=== PATIENT | male | born 1965 | race American Indian/Alaskan Native ===

== ENCOUNTER 2017-04-26 07:25 | Inpatient (IN) | payer OTHER ==
[2017-04-26 07:33] VITALS: BMI 28.5
--- NOTE | 2017-04-26 08:17 | ED PDOC ---
Lower Extremity Pain/Injury Time Seen by Provider: 04/26/17 07:25 Chief Complaint (Nursing): Lower Extremity Problem/Injury Chief Complaint (Provider): Left knee pain History Per: Patient History/Exam Limitations: no limitations Onset/Duration Of Symptoms: Days Current Symptoms Are (Timing): Still Present Additional Complaint(s): 52yo male with no past medical history, presents to ED for evaluation of left knee pain after he injured it yesterday. Patient states he had a meniscus injury one month ago, resulting in a torn meniscus. Patient states he is unable to fully extend at his left knee. States he took Aleve at 7pm last night with mild relief. He denies any numbness or tingling of his lower extremities. Patient has no other medical complaints. - Knee Currently Unable To: Bear Weight, Straighten Past Medical History Reviewed: Historical Data, Nursing Documentation, Vital Signs Vital Signs: Last Vital Signs Temp 97.2 F L 04/26/17 08:07 Pulse 87 04/26/17 08:07 Resp 16 04/26/17 08:07 BP 117/75 04/26/17 08:07 Pulse Ox 96 04/26/17 08:07 - Medical History PMH: Asthma - Surgical History Surgical History: Hernia Repair - Family History Family History: States: No Known Family Hx - Social History Current smoker - smoking cessation education provided: No Ex-Smoker (has not smoked in the last 12 months): No Alcohol: None Drugs: Denies - Home Medications Home Medications: Ambulatory Orders Medication Instructions Recorded oxyCODONE/Acetaminophen [Percocet 1 ea PO Q4H PRN #20 tab 04/26/17 5/325 mg Tab] - Allergies Allergies/Adverse Reactions: Allergies Allergy/AdvReac Type Severity Reaction Status Date / Time peanut Allergy ITCHING Verified 04/26/17 08:55 Review of Systems ROS Statement: Except As Marked, All Systems Reviewed And Found Negative Constitutional: Negative for: Fever, Chills Cardiovascular: Negative for: Chest Pain Respiratory: Negative for: Shortness of Breath Musculoskeletal: Positive for: Leg Pain (left knee pain) Physical Exam - Reviewed Nursing Documentation Reviewed: Yes Vital Signs Reviewed: Yes - Physical Exam Appears: Positive for: Non-toxic, No Acute Distress Head Exam: Positive for: ATRAUMATIC, NORMAL INSPECTION, NORMOCEPHALIC Skin: Positive for: Normal Color Eye Exam: Positive for: Normal appearance Neck: Positive for: Normal, Painless ROM Cardiovascular/Chest: Positive for: Regular Rate, Rhythm. Negative for: Murmur Respiratory: Positive for: Normal Breath Sounds. Negative for: Respiratory Distress Gastrointestinal/Abdominal: Positive for: Normal Exam Extremity: Positive for: Tenderness (tenderness to palpation left knee). Negative for: Normal ROM ((+) decreased ROM at left knee due to pain), Deformity Neurologic/Psych: Positive for: Alert, Oriented. Negative for: Motor/Sensory Deficits - Laboratory Results Result Diagrams: 04/26/17 08:46 04/26/17 08:46 - ECG O2 Sat by Pulse Oximetry: 96 (RA) Pulse Ox Interpretation: Normal Medical Decision Making Medical Decision Making: Time: 809 Impression: Left knee injury Plan: -- Labs -- EKG Reassess Time: [address] Boucher pt to be admitted for further evaluation and workup pt agreeable to plan Scribe Attestation: Documented by Dara Jimenez acting as a scribe for Dolores Ordaz MD. Provider Attestation: All medical record entries made by the Scribe were at my direction and personally dictated by me. I have reviewed the chart and agree that the record accurately reflects my personal performance of the history, physical exam, medical decision making, and the department course for this patient. I have also personally directed, reviewed, and agree with the discharge instructions and disposition. Disposition - Clinical Impression Clinical Impression: Locking of left knee - Patient ED Disposition Is Patient to be Admitted: Yes - Disposition Disposition Time: 07:55 Condition: STABLE
--- NOTE | 2017-04-26 08:53 | CP.PCM.HP ---
History of Present Illness - History of Present Illness History of Present Illness: Orthopedic consultation DR. Boucher 52M complains of severe left knee pain and locked knee. He says he injured his left knee on the treadmill approx 1 1/2 months ago, but has been able to walk until last night when pain got worse. PSH: hernia PMH: denies NKDA Present on Admission - Present on Admission Any Indicators Present on Admission: No Past Patient History - Past Medical History & Family History Past Medical History?: Yes Past Family History: Reviewed and not pertinent - Past Social History Alcohol: None Drugs: Denies - PULMONARY Hx Asthma: Yes - INTEGUMENTARY Hx Eczema: Yes - PSYCHIATRIC Hx Substance Use: No - SURGICAL HISTORY Hx Surgeries: Yes Hx Herniorrhaphy: Yes - ANESTHESIA Hx Anesthesia: Yes Hx Anesthesia Reactions: No Meds Allergies/Adverse Reactions: Allergies Allergy/AdvReac Type Severity Reaction Status Date / Time No Known Allergies Allergy Verified 04/26/17 08:06 Physical Exam - Constitutional Appears: Well - Expanded Lower Extremities Exam Left Knee exam: tenderness (limited left knee ROM, c/o pain. Sensation intact, +DP/ PT pulses, calves soft NT neg homans TTP to medial joint line, small joint effusion, no erythema, skin in tact) Neuro vacular tendon exam: no vascular compromise - Neurological Exam Neurological exam: Alert, Oriented x3 - Psychiatric Exam Psychiatric exam: Normal Affect, Normal Mood - Skin Skin Exam: Dry, Intact, Normal Color, Warm Results - Vital Signs Recent Vital Signs: Last Vital Signs Temp 97.2 F L 04/26/17 08:07 Pulse 87 04/26/17 08:37 Resp 16 04/26/17 08:07 BP 117/75 04/26/17 08:07 Pulse Ox 96 04/26/17 08:39 Assessment & Plan (1) Locking of left knee Assessment and Plan: case d/w Dr. Boucher NPO for left knee arthroscopy today f/u labs for OR Status: Acute
[2017-04-26 08:54] LABS: BASO % 0.6 % (0.0-2.0); EOS # 0.5 K/uL (0.0-0.7); EOS % 6.3 % (0.0-4.0); HEMATOCRIT 47.1 % (35.0-51.0); LYMPH # 2.9 K/uL (1.0-4.3); LYMPH % 39.3 % (20.0-40.0); MEAN CELL VOLUME 80.6 fl (80.0-94.0); MEAN CORPUSCULAR HGB CONC 33.6 g/dL (33.0-37.0); MEAN PLATELET VOLUME 7.3 fl (7.2-11.7); MONO # 0.7 K/uL (0.0-0.8); MONO % 9.3 % (0.0-10.0); NEUT # 3.2 K/uL (1.8-7.0); NEUT % 44.5 % (50.0-75.0); NRBC % 0.1 % (0.0-0.0); RED CELL DISTRIBUTION WIDTH 14.5 % (11.5-14.5); WHITE BLOOD COUNT 7.3 K/uL (4.8-10.8)
[2017-04-26 09:01] LABS: ALB/GLOB RATIO 1.3 (1.0-2.1); ALKALINE PHOSPHATASE 77 U/L (38-126); ALT/SGPT 53 U/L (21-72); AST/SGOT 34 U/L (17-59); BILIRUBIN,TOTAL 0.5 mg/dl (0.2-1.3); BLOOD UREA NITROGEN 19 mg/dl (9-20); CALCIUM 9.5 mg/dL (8.4-10.2); CARBON DIOXIDE 26 mmol/L (22-30); CHLORIDE 105 mmol/L (98-107); GFR AFRICAN-AMERICAN > 60; GLUCOSE,RANDOM 104 mg/dL (75-110); POTASSIUM 4.3 MMOL/L (3.6-5.0); SODIUM 142 mmol/l (132-148); TOTAL PROTEIN 8.2 G/DL (6.3-8.2)
[2017-04-26] MEDS ORDERED: Propofol 10 mg/ml Inj (20 ML) ONE (09:18)
[2017-04-26] MEDS ORDERED: Lidocaine 2% MPF (5 ml) Inj ONE (09:19)
[2017-04-26] MEDS ORDERED: Rocuronium 10 mg/ml (5 ml) ONE (09:19)
[2017-04-26] MEDS ORDERED: Lidocaine 4% (Laryng-O-Jet) Kit MM ONE (09:19)
[2017-04-26] MEDS ORDERED: MethylPREDNISolone Depo 40 mg/ml Inj ONE (09:19)
[2017-04-26] MEDS ORDERED: Succinylcholine 200 mg/10 ml Inj IV ONE (09:19)
[2017-04-26] MEDS ORDERED: Dexamethasone 4 mg/1 ml ONE ×2 (09:19→10:59)
[2017-04-26] MEDS ORDERED: Lidocaine 2% w Epi 1:100,000 Inj IJ ONE (09:19)
[2017-04-26] MEDS ORDERED: Lidocaine 1% Inj (20ml) ONE (09:19)
[2017-04-26] MEDS ORDERED: ceFAZolin IV 1 gm in Dextrose 2 GM/100 ML BAG IVPB ONE (09:19)
[2017-04-26] MEDS ORDERED: Phenylephrine 10 mg/ml Inj ONE (09:19)
[2017-04-26] MEDS ORDERED: Bupivacaine 0.5% Inj(30mL) ONE (09:19)
--- NOTE | 2017-04-26 10:18 | RAD ---
HISTORY: knee pain COMPARISON: None available. TECHNIQUE: Chest, one view. FINDINGS: LUNGS: No focal consolidation. Please note that chest x-ray has limited sensitivity for the detection of pulmonary masses. PLEURA: No significant pleural effusion identified. No definite pneumothorax . CARDIOVASCULAR: The cardiomediastinal silhouette appears within normal limits of size. OSSEOUS STRUCTURES: No acute osseous abnormality identified. VISUALIZED UPPER ABDOMEN: Unremarkable. OTHER FINDINGS: None. IMPRESSION: No focal consolidation, significant pleural effusion, or definite pneumothorax identified.
[2017-04-26] MEDS ORDERED: Midazolam 2 MG/2 ML VIAL ONE (10:47)
[2017-04-26] MEDS ORDERED: Lactated Ringer's 1,000 ML IV ONE (11:43)
[2017-04-26] MEDS ORDERED: Lidocaine 1% Inj (20ml) IJ ONE (11:43)
[2017-04-26] MEDS ORDERED: Neostigmine Methylsulfate 2 MG/2 ML ML IV ONE (11:46)
[2017-04-26] MEDS ORDERED: Neostigmine Methylsulfate 3mg/3ml Syringe IV ONE (11:46)
[2017-04-26] MEDS ORDERED: Morphine 1 mg/ml preservative-free Inj(Duramorph) ONE (12:09)
[2017-04-26] MEDS ORDERED: Lactated Ringer's 500 ML IV ONE (12:19)
[2017-04-26] MEDS ORDERED: MethylPREDNISolone Depo 40 mg/ml Inj IM ONE (12:19)
[2017-04-26] MEDS ORDERED: Bupivacaine 0.5% 50 ML IJ ONE (12:19)
[2017-04-26] MEDS ORDERED: Sodium Chloride 0.9% 500 ML IV ONE (12:19)
[2017-04-26] MEDS ORDERED: Lactated Ringer's 1,000 ML IV SCH (12:30)
[2017-04-26] MEDS ORDERED: Oxycodone/Acetaminophen 5/325 mg Tab PO PRN (12:32)
[2017-04-26 13:11] VITALS: RESP 18
[2017-04-26 15:27] VITALS: BP 126/78; PULSE 86; TEMP 97.4
--- NOTE | 2017-04-26 17:32 | PCM.SURG1 ---
Surgeon's Initial Post Op Note - Surgeon's Notes Surgeon: Sander Core Machine Tender: EFFIE Harrison Type of Anesthesia: General Endo, Spinal Anesthesia Administered By: DR Jhonathan Hinkle Pre-Operative Diagnosis: locked L knee(internal derangemnt L Knee) Operative Findings: complex tear medial meniscus. tear lateral meniscus'. tricompartmental synovitis Post-Operative Diagnosis: as above Operation Performed: arthroscopic p[artial tricompartmental synovectomy. arthroscopic partial medial /lateral meniscectomy Specimen/Specimens Removed: synovium/cartilage Estimated Blood Loss: EBL {In ML}: 3 Blood Products Given: N/A Drains Used: No Drains Post-Op Condition: Good Date of Surgery/Procedure: 04/26/17 Time of Surgery/Procedure: 11:45 (time in room/anesthesia indcution time 10:44)
--- NOTE | 2017-04-27 10:55 | CARD ---
APPROVED REPORT EKG Measurement Heart [id number] <Conclusion> Normal sinus rhythm Cannot rule out Inferior infarct, age undetermined Abnormal ECG
--- NOTE | 2017-04-30 13:39 | OP ---
PROCEDURE DATE: 04/26/2017 PREOPERATIVE DIAGNOSIS: Locked left knee (internal derangement of the left knee). POSTOPERATIVE DIAGNOSES: 1. Complex tear of medial meniscus. 2. Tear of lateral meniscus. 3. Tricompartmental synovitis. OPERATIONS PERFORMED: 1. Arthroscopic partial tricompartmental synovectomy. 2. Arthroscopic partial medial meniscectomy. 3. Arthroscopic partial lateral meniscectomy. 4. Intra-articular injection. SURGEON: Luis Boucher M.D. GENERAL UTILITY MAINTENANCE REPAIRER: Aparna Rooney, certified registered nursing nurse first [employer]. TYPE OF ANESTHESIA: General endotracheal anesthesia and spinal anesthesia. ANESTHESIA ADMINISTERED BY: Jhonathan Carter M.D. OPERATIVE FINDINGS: Complex tear of medial meniscus, tear of lateral meniscus, and tricompartmental synovitis. SPECIMEN: Synovium, cartilage. ESTIMATED BLOOD LOSS: 3 mL. BLOOD PRODUCTS: None. DRAINS: None. POSTOPERATIVE CONDITION: Stable. INDICATIONS OF PROCEDURE: It should be noted the patient identified as Nader Celis is a 52-year-old gentleman, who presented to the emergency room at [facility] with essentially a locked left knee and inability to ambulate. The patient has severe pain over the last several months. The patient was evaluated and admitted to the hospital. The patient had, had a prior MRI examination. It was positive for complex tear of the medial meniscus. The patient was admitted, prepped for surgery and taken to surgery as an emergency. After the satisfactory induction of general endotracheal anesthesia by Dr. Carter, after having identified side, site and procedure and a critical pause/time-out, left knee as the correct knee, after thoroughly discussing the pros, cons, risks and benefits of surgical arthroscopy, the concept of alternative procedures, the concept that in the future this patient in all medical probability will require arthroplasty of the knee was discussed. Of course, the patient is too big and too young for arthroplasty at this point in time. Concept of surgical arthroscopy was discussed. Possibility of mechanical failure, infection, thromboembolic disease, recurrent tear was discussed. Concept of later secondary surgery was discussed. Possibility of a later open surgery was discussed. OPERATIVE PROCEDURE: After having obtained informed consent, after having identified side, site and procedure and critical pause/time-out, after the satisfactory induction of the anesthetic, the patient was identified as Nader Celis, in the supine position with all bony prominences well padded. The left lower extremity was prepped and free draped in the usual fashion for lower extremity surgery. The tourniquet had been applied, but was not yet inflated. The knee weaver was employed. After having identified side, site and procedure and a critical pause/time-out, the lower extremity was exsanguinated using a 6-inch Esmarch bandage. Tourniquet, which had been applied, was inflated to 350 mmHg. The joint was infiltrated with 10 mL of 1% lidocaine without epinephrine and using #11 blade, followed by spreading, followed by introduction of blunt trocar. With the arthroscope introduced, there was found to be evidence of post-traumatic synovitis, which was severe. Triangulation was accomplished using #18 gauge spinal needle followed by #11 blade followed by spreading followed by introduction of blunt trocar. With the arthroscope anterolaterally, with the surgeon exerting a gentle valgus stress, a careful but extensive partial tricompartmental synovectomy was accomplished, both to improve visualization and to ablate irritative tissue. With the arthroscope anterolaterally, a careful partial tricompartmental synovectomy was completed. Bleeding points were controlled with the arthroscopic wand. Severe tricompartmental synovectomy was accomplished. With the arthroscope anterolaterally and with the surgeon exerting a gentle valgus stress, the medial compartment was exposed to advantage. There was found to be evidence of a complex tear of the medial meniscus. With the arthroscope anteromedially, using a combination of straight biting basket forceps and the upbiting basket forceps, a partial medial meniscectomy was accomplished. Using the arthroscopic shaver, great care was taken to take the meniscus back to a firm stable rim and the meniscus in this way resected. The anterior cruciate ligament was found to be intact. There was evidence of early arthritic change. With the arthroscope now anterolaterally, with the knee in [id number] position, there was found to be a tear in the inner free edge of the lateral meniscus. Using a combination of the side biting basket forceps and straight biting basket forceps, a partial lateral meniscectomy was accomplished of the left knee. This having been accomplished, a partial lateral meniscectomy was completed using a combination of the arthroscopic shaver. The arthroscopic wand was used for both the inner free edge of the medial meniscus and inner free edge of the lateral meniscus. Partial tricompartmental synovectomy was completed. Bleeding points were controlled with the arthroscopic wand. Partial tricompartmental synovectomy having been completed, bleeding points were controlled. The inner free edge of both menisci was smoothed. Closures were in layers with interrupted Vicryl and nylon. Intra-articular injection was offered of Duramorph and Depo-Medrol. Mervin Blount compression dressing was applied. The patient was stable in recovery. Luis Boucher MD
[2017-05-05 13:38] VITALS: O2SAT 96
== END 2017-04-26 16:20 | disposition home or self-care (01) | DRG 489 ==
LOC: H.ER 07:25 → H.ERHOLD 08:41
PROVIDERS: ADMIT Orthopaedic Surgery; ATTEND Orthopaedic Surgery
PROC: 0SBD4ZZ Excision of Left Knee Joint, Percutaneous Endoscopic Approach (ICD-10-PCS; 2017-04-26)
PROC: 3E0U33Z Introduction of Anti-inflammatory into Joints, Percutaneous Approach (ICD-10-PCS; 2017-04-26)
PROC: 0SBD4ZZ Excision of Left Knee Joint, Percutaneous Endoscopic Approach (ICD-10-PCS; principal; 2017-04-26 11:15)
DX: S83.232A Complex tear of medial meniscus, current injury, left knee, initial encounter (principal); S83.282A Other tear of lateral meniscus, current injury, left knee, initial encounter; M65.862 Other synovitis and tenosynovitis, left lower leg; J45.909 Unspecified asthma, uncomplicated; Y93.A1 Activity, exercise machines primarily for cardiorespiratory conditioning; Y92.9 Unspecified place or not applicable; Y99.9 Unspecified external cause status